=== PATIENT | male | born 1990 | race Caucasian/White ===

== ENCOUNTER 2017-03-09 17:18 | Emergency (ER) | payer MEDICARE, MEDICAID ==
[~2017-03-09] VITALS: Ht 172.7 cm; Wt 60.0 kg
[2017-03-09] MEDS ORDERED: DIAZEPAM 2 MG TABLET PO ONE (19:45)
[2017-03-09] MEDS ORDERED: METHOCARBAMOL 500MG TABLET PO ONE (22:00)
[2017-03-09 23:55] VITALS: BP 123/62
== END 2017-03-10 00:20 | disposition home or self-care (01) ==
LOC: ER 18:12
DX: G62.9 Polyneuropathy, unspecified (principal); M25.512 Pain in left shoulder; G89.29 Other chronic pain; Z90.89 Acquired absence of other organs
CPT/HCPCS: 99283